=== PATIENT | female | born 1940 | race Caucasian/White ===

== ENCOUNTER 2021-11-03 17:05 | Inpatient (IN) | payer OTHER, MEDICARE ==
[~2021-11-03] VITALS: Ht 152.4 cm; Wt 38.7 kg
[2021-11-03] MEDS ORDERED: HYDROCODONE-AC1 EAC7 PO (17:21)
[2021-11-03] MEDS ORDERED: EUTHYROX50 MC1 PO (17:21)
[2021-11-03 17:24] LABS: BASOPHILS ABSOLUTE AUTO 0.05 K/mm3 (0.00-0.23); BASOPHILS PERCENT AUTO 1 % (0-2); EOSINOPHILS ABSOLUTE AUTO 0.28 K/mm3 (0.00-0.68); EOSINOPHILS PERCENT AUTO 3 % (0-6); Hematocrit 36.3 % (33.0-51.0); IMMATURE GRAN ABSOLUTE AUTO 0.03 K/mm3 (0.00-0.10); IMMATURE GRAN PERCENT AUTO 0 % (0-1); LYMPHOCYTES PERCENT AUTO 24 % (21-46); MONOCYTES ABSOLUTE AUTO 0.72 K/mm3 (0.16-1.47); MONOCYTES PERCENT AUTO 8 % (4-13); Mean Corpuscular HGB 31.1 pg (26.0-34.0); Mean Corpuscular HGB Conc 33.1 g/dL (31.5-36.5); Mean Corpuscular Volume 94 fL (80-100); Mean Platelet Volume 9.1 fL (9.1-12.4); NEUTROPHILS ABSOLUTE AUTO 5.74 K/mm3 (1.96-9.15); NEUTROPHILS PERCENT AUTO 64 % (41-73); Platelet Count 306 K/mm3 (150-400); RDW Coefficient Variation 12.8 % (11.7-14.2); Red Blood Cell Count 3.86 M/mm3 (3.80-5.20); White Blood Cell Count 8.92 K/mm3 (4.00-11.30)
[2021-11-03 17:47] LABS: Albumin, Blood 3.6 g/dL (3.4-5.0); Albumin/Globulin Ratio 0.9 (0.8-1.8); Bilirubin, Total 0.4 mg/dL (0.1-1.0); Bun/Creatinine Ratio 19.8 (12.0-20.0); Calcium, Blood 9.5 mg/dL (8.5-10.1); Creatinine, Blood 1.06 mg/dL (0.40-1.00); Globulin, Blood 4.2 g/dL (2.2-4.0); Potassium, Blood 4.5 mmol/L (3.5-5.5); Total Protein, Blood 7.8 g/dL (6.4-8.2)
[2021-11-03 18:25] LABS: International Normalized Ratio 1.09; Prothrombin Time Results 11.4 Sec (9.7-11.5)
--- NOTE | 2021-11-03 23:03 | NUR ---
DR MERCER IN ROOM.
--- NOTE | 2021-11-03 23:04 | NUR ---
NEW ADMIT FROM ER, IN NO DISTRESS. ORIENTED TO ROOM AND CALL LIGHT. LEFT HIP APPEARS TO BE DEFORMED, MODERATELY SWOLLEN. PAINFUL WITH MOVEMENT AND TO THE TOUCH. SETTLED INTO BED, DR MECRER CALLED FOR ORDERS. AWITING FURTHER INSTRUCTION.
--- NOTE | 2021-11-04 04:06 | NUR ---
PT NEW ADMIT TO THE FLOOR FROM ER WITH A L FEM FX. VSS. PT HAS SLEPT ON AND OFF T/O THE NIGHT DUE TO PAIN. DR. MERCER WAS CALLED ONCE TO GET DIFFERENT ORDERS FOR PAIN CONTROL. NEWLY ORDERED DILAUDID APPEARS TO BE WORKING WELL. THE PT HAS NOT VET VOIDED. THE LEFT THIGH APPEARS TO BE SWOLLEN AND FIRM TO THE TOUCH, IT IS ALSO VERY PAINFUL FOR THE PATIENT. ICE WAS PLACED ON HER THIGH, WHICH OFFERED SOME RELIEF. THE PATIENT HAS FULL SENSATION IN HER LLE, CIRCULATION IS IN TACT. THE PT IS CURRENTLY SLEEPING WITH THE CALL LIGHT IN REACH.
[2021-11-04 05:07] LABS: Albumin, Blood 3.2 g/dL (3.4-5.0); Albumin/Globulin Ratio 0.9 (0.8-1.8); Bilirubin, Total 0.3 mg/dL (0.1-1.0); Bun/Creatinine Ratio 24.6 (12.0-20.0); Calcium, Blood 8.5 mg/dL (8.5-10.1); Creatinine, Blood 0.98 mg/dL (0.40-1.00); Globulin, Blood 3.6 g/dL (2.2-4.0); Potassium, Blood 4.7 mmol/L (3.5-5.5); Total Protein, Blood 6.8 g/dL (6.4-8.2)
[2021-11-04 05:26] LABS: BASOPHILS ABSOLUTE AUTO 0.03 K/mm3 (0.00-0.23); BASOPHILS PERCENT AUTO 0 % (0-2); EOSINOPHILS PERCENT AUTO 0 % (0-6); Hematocrit 27.2 % (33.0-51.0); Hemoglobin 8.8 g/dL (11.5-16.0); IMMATURE GRAN ABSOLUTE AUTO 0.03 K/mm3 (0.00-0.10); IMMATURE GRAN PERCENT AUTO 0 % (0-1); LYMPHOCYTES ABSOLUTE AUTO 1.33 K/mm3 (0.84-5.20); LYMPHOCYTES PERCENT AUTO 12 % (21-46); MONOCYTES ABSOLUTE AUTO 0.88 K/mm3 (0.16-1.47); MONOCYTES PERCENT AUTO 8 % (4-13); Mean Corpuscular HGB 30.7 pg (26.0-34.0); Mean Corpuscular HGB Conc 32.4 g/dL (31.5-36.5); Mean Corpuscular Volume 95 fL (80-100); Mean Platelet Volume 9.2 fL (9.1-12.4); NEUTROPHILS ABSOLUTE AUTO 9.29 K/mm3 (1.96-9.15); NEUTROPHILS PERCENT AUTO 80 % (41-73); Platelet Count 241 K/mm3 (150-400); RDW Coefficient Variation 12.7 % (11.7-14.2); RDW Standard Deviation 44.2 fL (35.1-46.3); Red Blood Cell Count 2.87 M/mm3 (3.80-5.20); White Blood Cell Count 11.56 K/mm3 (4.00-11.30)
[2021-11-04 11:58] LABS: SARS-Cov-2 (COVID-19) PCR, MMC NEGATIVE (NEGATIVE)
[2021-11-04 15:22] LABS: Source, Urine Foley catheter
[2021-11-04 15:35] LABS: Appearance, Urine Hazy (Clear); Bilirubin, Urine Neg (Neg); Blood, Urine 1+ (Neg); Color, Urine Yellow (P-Yellow); Glucose Qualitative, Urine Neg (Neg); Ketones, Urine Neg (Neg); Leukocyte Esterase, Urine 3+ (Neg); Nitrite, Urine Neg (Neg); Protein, Urine 1+ (Neg); Specific Gravity, Urine 1.025 (1.003-1.022); Urobilinogen, Urine NORM (Normal)
--- NOTE | 2021-11-04 15:44 | NUR ---
SHIFT SUMMARY: LEFT HIP FX PATIENT IS A&OX4. VS ARE WNL AND IS ON RA. PAIN IS MANAGED WITH IV PAIN MEDICATIONS. LEFT HIP IS SWOLLEN AND TENDER TO TOUCH/MOVE. PATIENT DENIES NUMBNESS AND TINGLING. SHE CAN MOVE HER FINGERS AND TOES WHEN ASKED. SHE IS TOLERATING SMALL AMOUNTS OF PO INTAKE. TINSLEY IS DRAINING PER GRAVITY WITH NO KINKS IN TUBING. DAUGHTER IS AT BEDSIDE WITH HER. CALL LIGHT WITHIN REACH. THE PLAN IS TO BE NPO AT MIDNIGHT TONIGHT TO HAVE SURGERY TOMORROW AT SOME POINT.
[2021-11-04 16:15] LABS: Amorphous Light (0-Heavy); Bacteria Few /hpf; Squamous Epithelial Cells Rare /hpf (Few); Transitional Epithelial Cells Few /hpf (0-Rare)
[2021-11-05 04:41] LABS: Hematocrit 22.4 % (33.0-51.0); Hemoglobin 7.3 g/dL (11.5-16.0); Mean Corpuscular HGB 31.1 pg (26.0-34.0); Mean Corpuscular HGB Conc 32.6 g/dL (31.5-36.5); Mean Corpuscular Volume 95 fL (80-100); Mean Platelet Volume 9.5 fL (9.1-12.4); Platelet Count 212 K/mm3 (150-400); RDW Coefficient Variation 12.9 % (11.7-14.2); RDW Standard Deviation 44.8 fL (35.1-46.3); Red Blood Cell Count 2.35 M/mm3 (3.80-5.20)
--- NOTE | 2021-11-05 05:08 | NUR ---
VSS. PT HAS SLEPT WELL T/O THE NIGHT. MEDICATED ONCE FOR PAIN AT THE BEGINNING OF SHIFT. THE PT WAS ABLE TO FALL ASLEEP BUT DID WAKE UP CONFUSED. WHEN THE PT AWOKE THIS AM SHE WAS A/OX4, MEDICATED FOR PAIN AGAIN AT THIS TIME. PTHAS BEEN NPO SINCE 0000, IN ANTICIPATION OF HAVING SURGERY THIS AM. TINSLEY REMAINED PATENT, DRAINING CLEAR YELLOW URINE. PT IS RESTING IN BED, IN NO DISTRESS. CALL LIGHT IN REACH AND BED ALARM ON.
[2021-11-05 05:10] LABS: Bun/Creatinine Ratio 25.2 (12.0-20.0); Calcium, Blood 8.7 mg/dL (8.5-10.1); Creatinine, Blood 0.87 mg/dL (0.40-1.00); Percent Saturation 9.9 % (15.0-50.0)
--- NOTE | 2021-11-05 09:14 | NUR ---
PTS DAUGHTER Allyssa ASKING WHY PATIENT HAS NOT GONE TO SURGERY YET TODAY "ARE YOU JUST GOING TO LAY HERE AND LET HER , DO YOU EVEN KNOW WHAT IS GOING ON, YOU ArE GOING TO LET HER GET PNEUMONIA" PTS DAUGHTER TELLS ME SHE WANTS HER MOTHER TRANSFERRED TO ANOTHER FACILITY. INFORMED ALLYSSA THAT I WILL CHECK OR SCHEDULE TO CLARIFY A SURGICAL TIME, WILL HAVE DENTURE PACKER SPEAK WITH HER RE TRANSFER. PT INSTRUCTED ON USE OF IS. SPOKE WITH DAY SURGERY RN TO CLARIFY OR TIME FOR TODAY AND PASSSED THIS INFO ON TO PATIENT AND HER DAUGHTER. DENTURE PACKER ANAHY CHAUDHARI SPOKE WITH PATIENT AND HER DAUGHTER REGARDING SURGICAL TIME SCHEDULED TODAY AFTER 12 NOON. PER DENTURE PACKER PATIENT AND DAUGHTER ARE IN AGREEMENT WITH PLAN FOR SURGERY TODAY
--- NOTE | 2021-11-05 11:25 | NUR ---
Pt. is awake in bed and welcomes my visit. Pt. displays evidence of visceral pain, and is unsettled about waitring for her procedure. Listen empathetically with a calming presence. Pt. displays evidence of a sense of humor, but waning patience. Establish rapport and pray for Pt. Pt. verbalized gratitude for the spiritual care visit.
--- NOTE | 2021-11-05 11:59 | NUR ---
1150 to day surgery via bed, accompanied by daughter Berna
--- NOTE | 2021-11-05 12:24 | NUR ---
History, Chart, Medications and Allergies reviewed before start of procedure.Pre-Op teaching done. Pt verbalizes understanding.
--- NOTE | 2021-11-05 13:09 | NUR ---
11/05/21 1309 Samia Whitten PT HAD TINSLEY IN PLACE PRIOR TO ENTERING OR.
--- NOTE | 2021-11-05 15:33 | NUR ---
1515 returned to room, drowsy opens eyes to verbal stimuli denies pain. left hip bulky dressing x2 clean dry and intact,npt denies any numbness or tingling. wiggles toes when asked to do so
--- NOTE | 2021-11-05 17:25 | NUR ---
PT SLEEPING WHEN UNDISTURBED, OPENS EYES TO VERBAL STIMULI. PT REPORTS REMAINS PAINFUL AND UNABLE TO RATE AT THIS TIME. PT WITH FACE SCORE OF 2-3. TAKING SMALL AMOUNTS OF PO FOOD AND FLUIDS WITHOUT NAUSEA. LEFT HIP DRESSINGS DRY AND INTACT. PT DENIES ANY NUMBNESS OR TINGLING AND MOVES BILAT LOWER EXTREMITIES SPONTANEOUSLY.
--- NOTE | 2021-11-06 01:21 | NUR ---
DR. DENNY NOTIFIED OF PATIENTS HYPOTENSION, ORDERED TO GIVE A 500 ML BOLUS. PT REMAINS ASYMPTOMATIC.
--- NOTE | 2021-11-06 04:29 | NUR ---
POD1 FOR GAMMA NAILING OF THE LEFT FEMUR. VSS, BP NOTED TO BE SOFT. DR DENNY NOTIFIED AND ORDERED A 500ML BOLUS. BP NOTED TO IMPROVE AFTER THIS. THE PT SLEPT WELL T/O THE NIGHT. MEDICATED FOR PAIN PER EMAR. REPOSITIONED THE PATIENT TO INCREASE COMFORT. LLE HAS INTACT CIRCULATION AND SENSATION, PAIN IN EXPERIENCED WITH MOVEMENT OF THIS EXTREMITY. TINSLEY DRAINING YELLOW URINE. PATIENT IS CURRENTLY SLEEPING, IN NO DISTRESS. CALL LIGHT IN REACH
--- NOTE | 2021-11-06 05:18 | NUR ---
PAIN PT REPORTS PAIN 10/10 PAIN T/O THE NIGHT, MEDICATED FOR PAIN PER EMAR. THE PATIENT APPEARED TO BE RESTING PEACEFULLY WITH NO SIGNS OF DICOMFORT NOTED AT REST. PATIENT REQUESTING "THAT IV D MEDICATION" WITH EVERY INTERACTION. EDUCATED ON MEDICATION SAFETY RELATED TO RESPIATORY STATUS, BLOOD PRESSURE, AND PRN ORDERS. NONPHARMACOLOGICAL METHODS OF PAIN CONTROL OFFERED, PATIENT ONLY ALLOWED ONE REPOSIONING. ICE PLACED FOR COMFORT, PT RESISTANT. PT MILDLY CONFUSED AFTER RECIEVING DILAUDID. CONTINUING TO MEDICATE PER EMAR, AND OFFERING NONPHARM METHODS PATIENT TOLLERATES.
[2021-11-06 09:47] LABS: Albumin, Blood 2.6 g/dL (3.4-5.0); Anion Gap 7 mmol/L (6-16); Blood Urea Nitrogen 17 mg/dL (8-24); Bun/Creatinine Ratio 20.7 (12.0-20.0); CO2, Blood 29 mmol/L (21-32); Calcium, Blood 8.1 mg/dL (8.5-10.1); Chloride, Blood 102 mmol/L (98-108); Creatinine, Blood 0.82 mg/dL (0.40-1.00); Glomerular Filtration Rate 72 (60-); Glucose, Blood 129 mg/dL (70-99); Phosphorus, Blood 2.6 mg/dL (2.5-4.9); Potassium, Blood 3.3 mmol/L (3.5-5.5); Sodium, Blood 138 mmol/L (136-145)
[2021-11-06 09:50] LABS: Mean Corpuscular HGB 31.1 pg (26.0-34.0); Mean Corpuscular HGB Conc 32.2 g/dL (31.5-36.5); Mean Corpuscular Volume 97 fL (80-100); Mean Platelet Volume 9.8 fL (9.1-12.4); Platelet Count 198 K/mm3 (150-400); RDW Coefficient Variation 12.9 % (11.7-14.2); RDW Standard Deviation 45.2 fL (35.1-46.3); White Blood Cell Count 9.95 K/mm3 (4.00-11.30)
[2021-11-06 10:36] LABS: Hemoglobin 5.6 g/dL (11.5-16.0)
[2021-11-06 10:37] LABS: Hematocrit 17.4 % (33.0-51.0)
--- NOTE | 2021-11-06 12:21 | NUR ---
1153 sudden onset nonsensical, word salad . pt moves all extremities spontaneously. dr garland notified and orders received. pt sent for stat head ct at 1215. pts daughter at bedside . Dr Dulce Mejia here and updated on patient status
--- NOTE | 2021-11-06 12:46 | NUR ---
1210 returned to room from ct. pt continues with word salad/nonsensical speech. pt moves extremities x4 spontaneously. pupils equal and briskly reactive to light. pts daughter at bedside
--- NOTE | 2021-11-06 16:35 | NUR ---
1400 pt with periods of clear speech and some periods of non sensical speech, pts daughter at bedside
--- NOTE | 2021-11-06 17:59 | NUR ---
TRANSFUSED 2 UNITS RBC.PT REPORTS LEVEL 7-10 PAIN TO LEFT HIP AND BACK, DOZING AT TIMES WHEN UNDISTURBED. PT CONTINUES WITH PERIODS OF WORD SALAD/NONSENSICAL SPEECH AND MUCH OF THE TIME ABLE TO CONVERSE . DRESSING DRY AND INTACT TO LEFT HIP. I,,EDIATE CAPILLARY REFILL, MOVEMENT AND SENSATION INTACT BLE. FAMILY AT BEDSIDE MUCH OF SHIFT
[2021-11-07 04:53] LABS: Hemoglobin 8.6 g/dL (11.5-16.0); Mean Corpuscular HGB 28.9 pg (26.0-34.0); Mean Corpuscular HGB Conc 34.4 g/dL (31.5-36.5); Mean Platelet Volume 9.3 fL (9.1-12.4); NRBC ABSOLUTE 0.03 K/mm3 (0.00-0.02); NRBC Auto 0.3 /100 WBC (0.0-0.2); Platelet Count 209 K/mm3 (150-400); RDW Standard Deviation 57.8 fL (35.1-46.3); Red Blood Cell Count 2.98 M/mm3 (3.80-5.20); White Blood Cell Count 11.15 K/mm3 (4.00-11.30)
[2021-11-07 04:54] LABS: Mean Corpuscular Volume 84 fL (80-100)
[2021-11-07 05:37] LABS: Albumin, Blood 2.5 g/dL (3.4-5.0); Anion Gap 5 mmol/L (6-16); Blood Urea Nitrogen 14 mg/dL (8-24); Bun/Creatinine Ratio 19.8 (12.0-20.0); CO2, Blood 29 mmol/L (21-32); Calcium, Blood 8.6 mg/dL (8.5-10.1); Chloride, Blood 102 mmol/L (98-108); Creatinine, Blood 0.71 mg/dL (0.40-1.00); Glomerular Filtration Rate 85 (60-); Glucose, Blood 108 mg/dL (70-99); Phosphorus, Blood 1.6 mg/dL (2.5-4.9); Potassium, Blood 3.8 mmol/L (3.5-5.5); Sodium, Blood 136 mmol/L (136-145)
--- NOTE | 2021-11-07 06:11 | NUR ---
SHIFT SUMMARY NO ACUTE CHANGES TO REPORT THIS SHIFT. PT HGB IS UP TO 8.6 AFTER RECEIVING 2 UNITS OF PRBC'S DURING DAYSHIFT YESTERDAY FOR A HGB OF 5.6. PT HAS NO FRESH COMPLAINTS. PT STILL VERY PAINFUL WITH VERY LITTLE MOVEMENT, MEDICATED FOR PAIN PER EMAR ORDERS. PT RECEIVED IRON INFUSION THIS SHIFT. DRESSING INTACT TO L HIP. NO REPORTS OF N/T IN EXT. VITALS STABLE. BED IN LOWEST POSITION, CALL LIGHT WITHIN REACH.
--- NOTE | 2021-11-07 16:30 | NUR ---
SHIFT SUMMARY PT A&OX4, VSS/RA. POD2 L HIP NAILING, AQUACEL APPLIED TODAY. AMB 2 PERSON MAX ASSIST, UP TO CHAIR/BSC. EFRAIN PO. VOIDING WELL. PAIN MANAGED BETTER TODAY WITH 15 MG NORCO AND TORADOL. WILL REPORT TO ONCOMING NOC RN.
--- NOTE | 2021-11-08 04:16 | NUR ---
SHIFT SUMMARY POD3 L HIP GAMMA NAILING WITH DR. LOJA. L HIP WITH AQUACEL DRESSING REMAIN CDI. TOLERATING PO INTAKE DENIES N/V. PAIN MANAGED WITH 15MG NORCO. PT SLEPT GOOD T/O SHIFT. FERRLECIT ADMINSITERED VIA IV LAST NIGHT. PT TOLERATED IT WELL. VSS. DENIES CP AND SOB. VSS. AQUACEL DRESSING ON L HIP REMAIN CDI. VOIDING. USE CALL LIGHT APPROPRIATELY. AOX3. CALL LIGHT WITHIN REACH. WILL PROVIDE REPORT TO ONCOMING NURSE.
[2021-11-08 06:05] LABS: Hematocrit 26.2 % (33.0-51.0); Hemoglobin 8.7 g/dL (11.5-16.0); Mean Corpuscular HGB 28.9 pg (26.0-34.0); Mean Corpuscular HGB Conc 33.2 g/dL (31.5-36.5); Mean Corpuscular Volume 87 fL (80-100); Mean Platelet Volume 9.3 fL (9.1-12.4); Platelet Count 250 K/mm3 (150-400); RDW Coefficient Variation 17.8 % (11.7-14.2); RDW Standard Deviation 55.9 fL (35.1-46.3); Red Blood Cell Count 3.01 M/mm3 (3.80-5.20); White Blood Cell Count 8.52 K/mm3 (4.00-11.30)
[2021-11-08 06:28] LABS: Albumin, Blood 2.5 g/dL (3.4-5.0); Anion Gap 4 mmol/L (6-16); Blood Urea Nitrogen 18 mg/dL (8-24); Bun/Creatinine Ratio 22.9 (12.0-20.0); CO2, Blood 30 mmol/L (21-32); Calcium, Blood 8.8 mg/dL (8.5-10.1); Chloride, Blood 102 mmol/L (98-108); Creatinine, Blood 0.79 mg/dL (0.40-1.00); Glomerular Filtration Rate 75 (60-); Glucose, Blood 92 mg/dL (70-99); Phosphorus, Blood 2.9 mg/dL (2.5-4.9); Potassium, Blood 4.2 mmol/L (3.5-5.5); Sodium, Blood 136 mmol/L (136-145)
--- NOTE | 2021-11-08 16:49 | NUR ---
SHIFT SUMMARY PT A&OX4, VSS/RA, EFRAIN PO, VOIDING, AMB 1 PP MOD ASSIST TO BRP/CHAIR FOR MEALS. PAIN MANAGED WITH NORCO 15 MG AND TORADOL. POD3 L HIP GAMMA NAIL, AQUACEL X3 CDI. PT REPOSITIONS SELF WELL IN BED, DOING PHYSICAL THERAPY EXERCISES, USING INCENTIVE SPIROMETER. WILL REPORT TO ONCOMING NOC RN.
--- NOTE | 2021-11-09 04:07 | NUR ---
SHIFT SUMMARY POD #4 L HIP RODDING.AQUACEL X3 SITES C/D/I. A&OX4, TOLERATING PO INTAKE, USES BSC TO VOID, 1 ASSIST GB, FWW, TO TRANSFER. AWATING DISHCARGE PLANNING. MEDICATED FOR PAIN WITH NORCO 15MG, REPORTS RELIEF. VSS, CALL LIGHT IN REACH WILL REPORT TO THE DAY RN.
--- NOTE | 2021-11-09 18:01 | NUR ---
SHIFT SUMMARY POD 3 GAMMA NAIL TO LEFT HIP. X3 AQUACELS IN PLACE, C/D/I. 1P ASSIST TO BSC & CHAIR. PATIENT UP TO CHAIR WITH PT THIS AM FOR BREAKFAST, DECLINED CHAIR FOR ALL OTHER MEALS T/O DAY. EDUCATED PATIENT ON IMPORTANCE OF BEING UP TO CHAIR FOR MEALS AT THIS MINIMUM, PATIENT CONTINUED TO DECLINE. PAIN MANAGED PER EMAR. EATING, DRINKING, & VOIDING WELL ALTHOUGH POOR APPETITE T/O DAY. PATIENT DECLINED TO GET UP TO BSC AT TIMES, USED BEDPAN. PATIENT RE-THOUGHT DECISION ON HOME W/ HOME HEALTH VS SNF AND REPORTED THAT SHE WAS AGREEABLE TO GO TO SNF NOW, [employer] UPDATED. CALLS APPROPRIATELY, WILL REPORT TO ONCOMING RN.
[2021-11-10 05:29] LABS: BASOPHILS ABSOLUTE AUTO 0.06 K/mm3 (0.00-0.23); BASOPHILS PERCENT AUTO 1 % (0-2); EOSINOPHILS ABSOLUTE AUTO 0.59 K/mm3 (0.00-0.68); EOSINOPHILS PERCENT AUTO 8 % (0-6); Hematocrit 28.9 % (33.0-51.0); Hemoglobin 9.4 g/dL (11.5-16.0); IMMATURE GRAN ABSOLUTE AUTO 0.08 K/mm3 (0.00-0.10); IMMATURE GRAN PERCENT AUTO 1 % (0-1); LYMPHOCYTES ABSOLUTE AUTO 1.16 K/mm3 (0.84-5.20); LYMPHOCYTES PERCENT AUTO 15 % (21-46); MONOCYTES PERCENT AUTO 10 % (4-13); Mean Corpuscular HGB 29.3 pg (26.0-34.0); Mean Corpuscular HGB Conc 32.5 g/dL (31.5-36.5); Mean Corpuscular Volume 90 fL (80-100); Mean Platelet Volume 8.9 fL (9.1-12.4); NEUTROPHILS ABSOLUTE AUTO 5.07 K/mm3 (1.96-9.15); NEUTROPHILS PERCENT AUTO 65 % (41-73); Platelet Count 340 K/mm3 (150-400); RDW Coefficient Variation 17.7 % (11.7-14.2); Red Blood Cell Count 3.21 M/mm3 (3.80-5.20); White Blood Cell Count 7.76 K/mm3 (4.00-11.30)
--- NOTE | 2021-11-10 05:35 | NUR ---
SHIFT SUMMARY NO ACUTE CHANGES OVERNIGHT. VSS. IRON INFUSION STOPPED AFTER 30MLS LAST NIGHT BECAUSE HER IV WAS LEAKING. ATTEMPT TO PLACE NEW IV. PT REFUSED. PT WAS REQUESTING FOR ORAL SUPPLEMENTS FOR IRON INSTEAD. CALLED DR. MERCER. NOTIFIED OF THIS. WILL F/U WITH DAY SHIFT TODAY AND CBC (LAB) ORDER. PT REPORTS PAIN ON L HIP AND BACK. PAIN MANAGED WITH 15MG NORCO AND TYLENOL. USED BEDPAN, EDUCATE IMPROTANCE OF MOVING AND USING THE BSC AND BATHROOM. PT REFUSED TO GET UP TO VOID. AOX4. [place]. TOLERATING PO INTAKE DENIES N/V. DENIES DIZZINESS/LIGHTHEADEDNESS. CALL LIGHT WITHIN REACH. WILL PROVIDE REPORT TO ONCOMIN NURSE.
--- NOTE | 2021-11-10 13:54 | NUR ---
Pt. is awake and welcomes my visit. Pt. is unsettled by having been awaken by the care team. Listen empathetically with a calming presence. Pt. displays evidence of a clear mind and a detailed memory. Pt. verbalizes that she is heading to rehab and displays a good optimistic outlook about it. Prayed with Pt. and then continued to build rapport. Pt. verbalized gratitude for the spiritual care visit.
[2021-11-10 14:57] LABS: Influenza A, PCR NEGATIVE (NEGATIVE); Influenza B, PCR NEGATIVE (NEGATIVE); Resp Syncytial Virus, PCR NEGATIVE (NEGATIVE); SARS-Cov-2 (COVID-19) PCR, MMC NEGATIVE (NEGATIVE)
--- NOTE | 2021-11-10 17:49 | NUR ---
DISCHARGE REPORT CALLED TO [facility]. SCRIPT SENT w/ DC PAPERS. PT DOING WELL. 1 ASSIST w/ GB & FWW.
== END 2021-11-10 17:49 | DRG 481 ==
LOC: ER 17:05 → SURS 19:05
PROVIDERS: Internal Medicine; Orthopaedic Surgery; Student in an Organized Health Care Education/Training Program; ADMIT Internal Medicine
PROC: 30233N1 Transfusion of Nonautologous Red Blood Cells into Peripheral Vein, Percutaneous Approach (ICD-10-PCS; 2021-11-03)
PROC: 0QS736Z Reposition Left Upper Femur with Intramedullary Internal Fixation Device, Percutaneous Approach (ICD-10-PCS; principal; 2021-11-05 12:30)
DX: S72.142A Displaced intertrochanteric fracture of left femur, initial encounter for closed fracture (principal); D62 Acute posthemorrhagic anemia; E44.0 Moderate protein-calorie malnutrition; Z68.1 Body mass index [BMI] 19.9 or less, adult; N17.9 Acute kidney failure, unspecified; E03.9 Hypothyroidism, unspecified; E87.6 Hypokalemia; Z20.822 Contact with and (suspected) exposure to COVID-19; Z66 Do not resuscitate; D50.9 Iron deficiency anemia, unspecified; R82.81 Pyuria; G89.29 Other chronic pain; F17.210 Nicotine dependence, cigarettes, uncomplicated; I95.9 Hypotension, unspecified; E83.39 Other disorders of phosphorus metabolism; R56.9 Unspecified convulsions; Z79.891 Long term (current) use of opiate analgesic; Z79.899 Other long term (current) drug therapy; W01.0XXA Fall on same level from slipping, tripping and stumbling without subsequent striking against object, initial encounter
CPT/HCPCS: 0241U; 36415; 70450; 71045; 72192; 73502; 73552; 80048; 80053; 80069; 81001; 82728; 83540; 83550; 83880; 85025; 85027; 85610; 85730; 86850; 86900; 86901; 86923; 87086; 93005; 93010; 94760; 96374; 96375; 97110; 97116; 97161; 97165; 97530; 97535; 99285-25; A9270; C1713; C1769; J0690; J0696; J1100; J1170; J1650; J1885; J2270; J2370; J2405; J2704; J2795; J2916; J3010; J7030; J7040; J7050; J7060; J7120; P9016; U0004

== ENCOUNTER → 2022-04-11 | Outpatient (CLI) | payer MEDICARE, OTHER ==
[~2022-04-11] MED LIST: EUTHYROX50 MC1 PO; HYDROCODONE-AC1 EAC7 PO
[2022-04-11 11:01] LABS: BASOPHILS ABSOLUTE AUTO 0.04 K/mm3 (0.00-0.23); BASOPHILS PERCENT AUTO 0 % (0-2); EOSINOPHILS ABSOLUTE AUTO 0.03 K/mm3 (0.00-0.68); EOSINOPHILS PERCENT AUTO 0 % (0-6); Hematocrit 35.1 % (33.0-51.0); Hemoglobin 11.9 g/dL (11.5-16.0); IMMATURE GRAN ABSOLUTE AUTO 0.07 K/mm3 (0.00-0.10); IMMATURE GRAN PERCENT AUTO 1 % (0-1); LYMPHOCYTES PERCENT AUTO 6 % (21-46); MONOCYTES ABSOLUTE AUTO 1.27 K/mm3 (0.16-1.47); MONOCYTES PERCENT AUTO 10 % (4-13); Mean Corpuscular HGB 32.4 pg (26.0-34.0); Mean Corpuscular HGB Conc 33.9 g/dL (31.5-36.5); Mean Corpuscular Volume 96 fL (80-100); NEUTROPHILS ABSOLUTE AUTO 10.71 K/mm3 (1.96-9.15); NEUTROPHILS PERCENT AUTO 83 % (41-73); Platelet Count 243 K/mm3 (150-400); RDW Coefficient Variation 12.5 % (11.7-14.2); RDW Standard Deviation 43.8 fL (35.1-46.3); Red Blood Cell Count 3.67 M/mm3 (3.80-5.20); White Blood Cell Count 12.92 K/mm3 (4.00-11.30)
[2022-04-11 11:13] LABS: Albumin, Blood 3.5 g/dL (3.4-5.0); Albumin/Globulin Ratio 0.8 (0.8-1.8); Bilirubin, Total 0.4 mg/dL (0.1-1.0); Bun/Creatinine Ratio 23.2 (12.0-20.0); Creatinine, Blood 1.12 mg/dL (0.40-1.00); Globulin, Blood 4.5 g/dL (2.2-4.0); Potassium, Blood 4.2 mmol/L (3.5-5.5)
== END | disposition home or self-care (01) ==
LOC: LAB SHORT 10:57
PROVIDERS: Physician Assistant
DX: R07.81 Pleurodynia (principal)
CPT/HCPCS: 80053; 84484; 85025; 85379